=== PATIENT | female | born 1990 | race Two or more races ===

== ENCOUNTER 2019-12-15 11:21 | Emergency (ER) | payer MEDICAID ==
[~2019-12-15] VITALS: Ht 157.5 cm; Wt 52.2 kg
[~2019-12-15 11:21] MED LIST: DEPAKOTE500 MG PO; KEPPRA; LEVETIRACETAM500 M1 PO; OXCARBAZEPINE; TRILEPTAL600 MG PO
[2019-12-15 11:27] VITALS: BP 138/75
--- NOTE | 2019-12-15 12:07 | Emergency Room Report ---
History of Present Illness General Chief Complaint: Seizure Source: Patient Present Illness HPI Patient presents with complaints of seizure activity patient's mom did see the patient having a seizure which was consistent with her usual symptoms and signs of a seizure Patient last had a seizure about a year ago is on Trileptal and Keppra denies any vomiting or diarrhea patient does have developmental delay as well Most of the history is obtained from the patient's mom she denies any recent fever denies any vomiting or diarrhea denies any other Recent trauma Allergies: Coded Allergies: No Known Allergies (Unverified , 08/05/12) COVID-19 Screening Contact w/high risk pt: No Recent Travel to affected area: No Experienced COVID-19 symptoms?: No COVID-19 Testing performed SOLE STITCHER HAND: No Patient History Past Medical History: see triage record Reviewed Nursing Documentation: PMH: Agreed; PSxH: Agreed Nursing Documentation-PMH Past Medical History: No History, Except For Hx Cancer: No Hx Gastrointestinal Problems: No Hx Neurological Problems: Yes - Autism Hx Seizures: Yes Review of Systems All Other Systems: negative except mentioned in HPI Physical Exam Vital Signs Date Time Temp Pulse Resp B/P (MAP) Pulse Ox O2 Delivery O2 Flow Rate FiO2 12/15/19 11:11 97.5 121 18 138/75 (96) 98 Room Air Sp02 EP Interpretation: reviewed, normal General Appearance: no apparent distress Head: normocephalic, atraumatic Eyes: bilateral eye other - Severe cataracts left eye ENT: normal pharynx Neck: supple, no meningismus Respiratory: lungs clear, no respiratory distress, no retraction, no accessory muscle use Cardiovascular #1: regular rate, rhythm Gastrointestinal: non tender, soft Musculoskeletal: other - Patient has developmental delays with what appears to be likely cerebral palsy Neurologic: other - Patient is responsive with this awake and communicating with mom Skin: no rash Lymphatic: no adenopathy Medical Decision Making Diagnostic Impression: Primary Impression: Epileptic seizure, generalized ER Course Multiple differentials include but not limited to infectious electrolyte abnormality neurological,, neurosurgical process entertained patient's blood work is at baseline levels initially the mom did not mention Depakote however level was drawn as patient was on it previously the level was found to be low after questioning further she does report She does take that medicine patient further hydrated medication provided Patient looks at baseline mentation to the mom and at this time is stable for close outpatient follow-up given the lack of any change in neurological findings imaging was not obtained Labs Test 12/15/19 11:45 12/15/19 12:30 White Blood Count 7.5 K/UL (4.8-10.8) Red Blood Count 3.91 M/UL (4.20-5.40) Hemoglobin 12.2 G/DL (12.0-16.0) Hematocrit 36.8 % (37.0-47.0) Mean Corpuscular Volume 94 FL (80-99) Mean Corpuscular Hemoglobin 31.3 PG (27.0-31.0) Mean Corpuscular Hemoglobin Concent 33.2 G/DL (32.0-36.0) Red Cell Distribution Width 12.5 % (11.6-14.8) Platelet Count 187 K/UL (150-450) Mean Platelet Volume 8.2 FL (6.5-10.1) Neutrophils (%) (Auto) 63.5 % (45.0-75.0) Lymphocytes (%) (Auto) 24.1 % (20.0-45.0) Monocytes (%) (Auto) 7.1 % (1.0-10.0) Eosinophils (%) (Auto) 3.9 % (0.0-3.0) Basophils (%) (Auto) 1.4 % (0.0-2.0) Sodium Level 139 MMOL/L (136-145) Potassium Level 3.4 MMOL/L (3.5-5.1) Chloride Level 104 MMOL/L (98-107) Carbon Dioxide Level 22 MMOL/L (21-32) Anion Gap 13 mmol/L (5-15) Blood Urea Nitrogen 8 mg/dL (7-18) Creatinine 0.9 MG/DL (0.55-1.30) Estimat Glomerular Filtration Rate > 60 mL/min (>60) Glucose Level 136 MG/DL (74-106) Calcium Level 8.4 MG/DL (8.5-10.1) Total Bilirubin 0.2 MG/DL (0.2-1.0) Aspartate Amino Transf (AST/SGOT) 11 U/L (15-37) Alanine Aminotransferase (ALT/SGPT) 9 U/L (12-78) Alkaline Phosphatase 65 U/L (46-116) Total Protein 6.9 G/DL (6.4-8.2) Albumin 3.4 G/DL (3.4-5.0) Globulin 3.5 g/dL Albumin/Globulin Ratio 1.0 (1.0-2.7) Lipase 213 U/L (73-393) Valproic Acid (Depakene) Level 43 MCG/ML (50-100) Urine Opiates Screen Negative (NEGATIVE) Urine Barbiturates Screen Negative (NEGATIVE) Phencyclidine (PCP) Screen Negative (NEGATIVE) Urine Amphetamines Screen Negative (NEGATIVE) Urine Benzodiazepines Screen Negative (NEGATIVE) Urine Cocaine Screen Negative (NEGATIVE) Urine Marijuana (THC) Screen Negative (NEGATIVE) Rhythm Strip Diag. Results EP Interpretation: yes Rate: 77 Rhythm: NSR, no PVC's, no ectopy Last Vital Signs Date Time Temp Pulse Resp B/P (MAP) Pulse Ox O2 Delivery O2 Flow Rate FiO2 12/15/19 11:27 97.5 121 18 138/75 98 Room Air Status: improved Disposition: HOME, SELF-CARE Condition: Improved Referrals: NON PHYSICIAN (PCP) Additional Instructions: Patient is provided with the discharge instructions notified to follow up with primary doctor in the next 2-3 days otherwise return to the er with any worsening symptoms. Please note that this report is being documented using iPosition technology. This can lead to erroneous entry secondary to incorrect interpretation by the dictating instrument. Rosie Rehman DO Dec 15, 2019 12:07
[2019-12-15 12:08] LABS: BASOPHILS % (AUTO) 1.4 % (0.0-2.0); EOSINOPHILS % (AUTO) 3.9 % (0.0-3.0); HEMATOCRIT 36.8 % (37.0-47.0); HEMOGLOBIN 12.2 G/DL (12.0-16.0); LYMPHOCYTES % (AUTO) 24.1 % (20.0-45.0); MEAN CORPUSCULAR VOLUME 94 FL (80-99); MONOCYTES % (AUTO) 7.1 % (1.0-10.0); NEUTROPHILS % (AUTO) 63.5 % (45.0-75.0); PLATELET COUNT 187 K/UL (150-450); RED BLOOD COUNT 3.91 M/UL (4.20-5.40); RED CELL DISTRIBUTION WIDTH 12.5 % (11.6-14.8); WHITE BLOOD COUNT 7.5 K/UL (4.8-10.8)
[2019-12-15 12:10] LABS: ANION GAP 13 mmol/L (5-15); BLOOD UREA NITROGEN 8 mg/dL (7-18); CALCIUM 8.4 MG/DL (8.5-10.1); CARBON DIOXIDE 22 MMOL/L (21-32); CHLORIDE 104 MMOL/L (98-107); CREATININE 0.9 MG/DL (0.55-1.30); POTASSIUM 3.4 MMOL/L (3.5-5.1); SODIUM 139 MMOL/L (136-145)
[2019-12-15 12:14] LABS: ALANINE AMINOTRANSFERASE 9 U/L (12-78); ALBUMIN 3.4 G/DL (3.4-5.0); ALKALINE PHOSPHATASE 65 U/L (46-116); ASPARTATE AMINO TRANSFERASE 11 U/L (15-37); BILIRUBIN,TOTAL 0.2 MG/DL (0.2-1.0)
[2019-12-15 13:00] VITALS: BP 118/66
[2019-12-15] MEDS ORDERED: Depakote 500mg tab ORAL ONE (13:15)
[2019-12-15 13:40] VITALS: BP 110/69
== END 2019-12-15 13:40 | disposition home or self-care (01) ==
LOC: EDBD 11:21 → EMR 11:45
DX: G40.909 Epilepsy, unspecified, not intractable, without status epilepticus (principal); F84.0 Autistic disorder; H25.9 Unspecified age-related cataract
CPT/HCPCS: 36415; 80053; 80164; 80307; 83690; 85025; 96360; J7030; Z7502; 99284